=== PATIENT | male | born 1965 | race Caucasian/White ===

== ENCOUNTER 2023-12-12 09:38 | Emergency (ER) | payer MEDICARE, OTHER, SELFPAY ==
[2023-12-12 09:42] VITALS: BP 122/71
--- NOTE | 2023-12-12 11:22 | ED.GENMED ---
History of Present Illness
<Myrna Landa PA-C - Last Filed: 12/12/23 16:50>
General
Chief Complaint: Change in Mental Status
Source: patient
Exam Limitations: none
Time Seen by Provider: 12/12/23 10:53
Nursing documentation reviewed up to this point in time: agreed with
Travel History
Have you had any contact with someone who has COVID-19?: No
Do you have any symptoms of coronavirus? Fever > 100 degrees, chills, cough, shortness of breath, sore throat, loss of taste or smell, muscle aches, or headache?: No
History of Present Illness
History of Present Illness:
Patient is a 57 year old male with history dementia and downs syndrome presenting to the emergency department for evaluation of worsening confusion and visual hallucinations. Patient lives with his brother and sister who are his caregivers. They
have noticed that patient has become progressively more confused and agitated over the past 1.5 weeks. Yesterday evening he was having visual hallucinations of bugs crawling on his skin. In addition�he has not been sleeping in the past 2 days. No
fever, chills, recent viral illness, or known bug bites. No recent rashes. Patient denies any headache, neck pain. No weakness or numbness in lower extremities, although his caregivers have noticed that he seems a little more unsteady on his feet
recently.
Patient was seen by neurology and primary care who are planning to have him follow-up with the dementia specialist and switch his sertraline to Lexapro as they are worried that symptoms may be related to his medications.
Review of Systems
<Myrna Landa PA-C - Last Filed: 12/12/23 16:50>
Review of Systems
Allergies reviewed?: Yes
All Other Systems: ROS reviewed and negative except as documented in HPI and ROS
Phy Exam
<Myrna Landa PA-C - Last Filed: 12/12/23 16:50>
Physical Exam
Physical Exam:
Vitals: Patient's vital signs are stable. Afebrile
General: Patient is well appearing, no acute distress. Nontoxic-appearing
Skin: Warm and dry, no rashes or lesions
Head: Normocephalic, atraumatic
Eyes: Sclera nonicteric. EOMs intact. No nystagmus.
Throat: Protecting airway
Neck: Normal ROM, no cervical spine tenderness, no meningismus
Cardiac: Regular rate and rhythm, no murmurs.
Pulm: Normal respiratory effort, no wheezes, rales, rhonchi heard on exam.
Abdomen: Abdomen soft. No abdominal tenderness.
Extremities: No evidence of cyanosis or edema. Good distal pulses.
Neuro: AAOx3. CN II-XII intact. No focal neurologic deficits. Normal finger-nose.
Psychiatric: Normal affect. Cooperative with exam.
Course
<Myrna Landa PA-C - Last Filed: 12/12/23 16:50>
Orders/Labs/Results
Orders:
Orders
12/12/23 11:19
CT Head W/o Iv Contrast Urgent
Comment:
Reason For Exam: confusion
12/12/23 11:25
Complete Blood Count/With Diff Urgent
Comprehensive Metabolic Panel Urgent
Depakane Urgent
Urinalysis Reflex To Culture Urgent
Date Specimen was Collected: 12/12/23
Time Specimen was Collected: 11:24
Abnormal Lab Results
12/12/23
11:25
RBC 4.41 L 10^6/uL
(4.70-6.10)
MCV 95.5 H fL
(80.0-94.0)
MCH 31.7 H pg
(27.0-31.0)
RDW 15.0 H %
(11.5-14.5)
Absolute Monos (auto) 0.7 H 10^3/uL
(0.1-0.6)
Lymphocytes % 19.9 L %
(20.5-51.1)
Monocytes % 10.7 H %
(1.7-9.3)
Carbon Dioxide 31 H mmol/L
(22-30)
Valproic Acid 45.2 L ug/ml
(50.0-120.0)
12/12/23 11:25
12/12/23 11:25
Vital Signs
Initial and Last Documented VS:
Initial Vital Signs
Temp Pulse Resp BP Pulse Ox
98.6 F 60 17 122/71 98
12/12/23 09:42 12/12/23 09:42 12/12/23 09:42 12/12/23 09:42 12/12/23 09:42
Last Documented Vital Signs
Temp Pulse Resp BP Pulse Ox
98.6 F 60 17 122/71 98
12/12/23 09:42 12/12/23 09:42 12/12/23 09:42 12/12/23 09:42 12/12/23 09:42
<Lars Shane, DO - Last Filed: 12/12/23 13:25>
Orders/Labs/Results
Orders:
Orders
12/12/23 11:19
CT Head W/o Iv Contrast Urgent
Comment:
Reason For Exam: confusion
12/12/23 11:25
Complete Blood Count/With Diff Urgent
Comprehensive Metabolic Panel Urgent
Depakane Urgent
Urinalysis Reflex To Culture Urgent
Date Specimen was Collected: 12/12/23
Time Specimen was Collected: :24
Abnormal Lab Results
12/12/23
11:25
RBC 4.41 L 10^6/uL
(4.70-6.10)
MCV 95.5 H fL
(80.0-94.0)
MCH 31.7 H pg
(27.0-31.0)
RDW 15.0 H %
(11.5-14.5)
Absolute Monos (auto) 0.7 H 10^3/uL
(0.1-0.6)
Lymphocytes % 19.9 L %
(20.5-51.1)
Monocytes % 10.7 H %
(1.7-9.3)
Carbon Dioxide 31 H mmol/L
(22-30)
Valproic Acid 45.2 L ug/ml
(50.0-120.0)
12/12/23 11:25
12/12/23 11:25
Vital Signs
Initial and Last Documented VS:
Initial Vital Signs
Temp Pulse Resp BP Pulse Ox
98.6 F 60 17 122/71 98
12/12/23 09:42 12/12/23 09:42 12/12/23 09:42 12/12/23 09:42 12/12/23 09:42
Last Documented Vital Signs
Temp Pulse Resp BP Pulse Ox
98.6 F 60 17 122/71 98
12/12/23 09:42 12/12/23 09:42 12/12/23 09:42 12/12/23 09:42 12/12/23 09:42
<Myrna Landa PA-C - Last Filed: 12/12/23 16:50>
MDM/Problems Addressed
Differential Diagnosis Includes:
Not limited to: Medication side effect, UTI, electrolyte abnormality, dementia, doubt malignancy or CVA
MDM/Problems Addressed:
57-year-old male with history dementia, Down syndrome presenting for progressive changes in mental status and increased agitation over the past 1 to 2 weeks. Also not sleeping well over the past week no recent viruses or signs of infection.
Patient without any recent changes in his medications. Current medications are managed with neurology and primary care. Neurology did recently state that patient may begin to decline quickly at some point. No recent fall or trauma. Vital signs
are stable. Exam as above. He has no focal neurologic findings. Patient himself has no complaints at the moment. Will check basic labs, urinalysis. Will check level of Depakote. Given acute change in mental status will check head CT.
Labs noted. No acute abnormalities. No evidence of electrolyte derangements. Urine shows absolutely no signs of infection. Depakote level is slightly subtherapeutic which apparently has been noted previously. Patient has no known true epilepsy
disorder but a questionable seizure in the past. Will not make any medication adjustments at this time. Head CT shows no acute abnormalities.
Patient remains comfortable appearing, in no apparent distress in room. Work appears been negative. I suspect symptoms are likely related to either polypharmacy or progression in dementia. Given concern for polypharmacy�do not recommend adding
medication for sleep. Recommended OTC melatonin, if needed. Patient will follow-up with primary care for further evaluation/management and medications. They are seeing a dementia specialist within a month or so. Patient and patient's family
comfortable with plan
Chronic conditions affecting care:
Dementia
Acute Exacerbation and/or Progression of Chronic Illness:
N/A
<Myrna Landa PA-C - Last Filed: 12/12/23 16:50>
*Radiology
Radiology exam reviewed: preliminary read by ED provider and radiology read reviewed
*Pulse Oximetry
Patient hypoxic: no
*EKG
Interpreted by ED Provider?: NA
*Piano Machine Operator Interpretation
Rate: Piano Machine Operator- N/A
*Critical Care Note
Total Time (30-74mins, 75-104mins- exclusive of procedures): Not Applicable
Data Reviewed
Source: family
ED Attending Note
<Myrna Landa PA-C - Last Filed: 12/12/23 16:50>
-
Portions of this chart may have been created with voice recognition software.� Occasional wrong word or��sound alike� substitutions may have occurred due to the inherent limitations of voice recognition software.
<Lars Shane DO - Last Filed: 12/12/23 13:25>
ED Attending Note
Patient seen and examined by attending physician: Yes
I performed the substantive portion of visit, reviewed & personally made and approve the management plan that is documented in note by myself or GRDAY.: Yes
ED Attending Note:
57yo male with hx of down syndrome. presents with family who is concerned he has been a bit more irritable and not sleeping well. has been on depakote after an event a few months ago. no changes to any other meds. family states that neurology did
report that he could decline. no fevers. no falls. no seizures. Exam: Awake and alert, no focal deficits, patient at baseline during exam. Assessment and plan: Labs grossly unremarkable. CT grossly unremarkable for any acute findings. Question
polypharmacy versus progression of disease. Outpatient follow-up recommended.
Discharge Plan
Departure
Patient Disposition: Home (Routine Discharge)
Date of Disposition: 12/12/23
Time of Disposition: 13:26
Patient with high blood pressure during this ER visit?: No
Condition: Good
Covid-19: Not Applicable
Discharge Problem:
Agitation, Altered mental status
Instructions: Altered Mental Status (DC), Dementia (DC)
Referrals:
Amber Lovett CRNP [Family Provider] - Next open appointment
Activity Restrictions/Additional Instructions:
RETURN TO THE EMERGENCY DEPARTMENT WITH ANY HIGH FEVERS, SEVERE HEADACHE OR NECK PAIN, INTRACTABLE NAUSEA/VOMITING, ACUTE CHANGE IN MENTAL STATUS, WORSENING IN CURRENT SYMPTOMS, OR ANY OTHER CONCERNS
-As discussed�if sleeping difficulties persist you can try melatonin prior to bed. Stay well hydrated. Continue to take medications as prescribed. I recommend he follow-up with your primary care provider/neurologist for further discussion
regarding current medications.
Interventions
Interventions:
*Risk Screen - Suicide Last Done: 12/12/23 11:57
*General Assessment Last Done: 12/12/23 11:57
*Neglect/Abuse Screening Last Done: 12/12/23 11:57
ED- Fall Risk Assessment Last Done: 12/12/23 13:47
*ED COVID-19 Vaccine History Last Done: 12/12/23 09:44
*Nursing Disposition Last Done: 12/12/23 13:47
ED- Neurological Assessment Last Done: 12/12/23 11:57
ED Swallowing Screen Last Done: 12/12/23 11:58
Discharge Date and Time
Discharge Date/Time: 12/12/23 13:47
Print Language: NIGERIEN
[2023-12-12 11:43] LABS: % Basophils 0.9 % (0-2); % Eosinophils 0.5 % (0-6); % Immature Granulocytes 0.3 % (0-0.5); % Lymphocytes 19.9 % (20.5-51.1); % Monocytes 10.7 % (1.7-9.3); % Neutrophils 67.7 % (42.2-75.2); Absolute Basophils 0.1 10^3/uL (0-0.2); Absolute Lymphocytes 1.3 10^3/uL (1.2-3.4); Absolute Monocytes 0.7 10^3/uL (0.1-0.6); Absolute Neutrophils 4.4 10^3/uL (1.4-6.5); Hematocrit 42.1 % (39.0-52.0); Mean Corp Hgb Conc. 33.3 g/dL (33.0-37.0); Mean Corpuscular Hgb 31.7 pg (27.0-31.0); Mean Corpuscular Volume 95.5 fL (80.0-94.0); Mean Platelet Volume 9.4 fL (7.4-10.4); Nucleated Red Blood Cells % 0 % (-); Platelet Count 196 10^3/uL (130-400); Red Blood Cell Count 4.41 10^6/uL (4.70-6.10); White Blood Cell Count 6.5 10^3/uL (4.8-10.8)
[2023-12-12 11:47] LABS: Urine Albumin Negative (Neg - Trace); Urine Bilirubin Negative (Negative); Urine Character Clear (Clear); Urine Color Yellow; Urine Glucose Negative (Negative); Urine Ketone Negative (Negative); Urine Leukocyte Negative (Negative); Urine Nitrite Negative (Negative); Urine Occult Blood Negative (Negative); Urine Specific Gravity 1.015 (<1.030); Urine Urobilinogen Negative (Neg - 1+)
[2023-12-12 11:56] VITALS: BMI 25.1
[2023-12-12 12:00] LABS: ALT (SGPT) 18 U/L (0-50); AST (SGOT) 32 U/L (17-59); Albumin 3.9 g/dl (3.5-5.0); Alkaline Phosphatase 78 U/L (38-126); Blood Urea Nitrogen 19 mg/dl (9-20); Calcium 8.9 mg/dl (8.4-10.2); Carbon Dioxide 31 mmol/L (22-30); Chloride 101 mmol/L (98-107); Estimated Creatinine Clearance 84 ml/min; Glucose 73 mg/dl (70-99); Potassium 4.1 mmol/L (3.5-5.1); Sodium 139 mmol/L (135-145); Total Bilirubin 0.6 mg/dl (0.2-1.3); Total Protein 7.3 g/dl (6.3-8.2); eGFR > 60.00
[2023-12-12 12:03] LABS: Depakane 45.2 ug/ml (50.0-120.0)
== END 2023-12-12 13:47 | disposition home or self-care (01) ==
LOC: EMR 09:38
PROVIDERS: Physician Assistant; EMERGENCY PHYSICIAN Emergency Medicine; FAMILY PHYSICIAN Nurse Practitioner
DX: R41.82 Altered mental status, unspecified (principal); R45.1 Restlessness and agitation; R44.1 Visual hallucinations; Q90.9 Down syndrome, unspecified; G30.9 Alzheimer's disease, unspecified; F02.80 Dementia in other diseases classified elsewhere, unspecified severity, without behavioral disturbance, psychotic disturbance, mood disturbance, and anxiety; Z86.718 Personal history of other venous thrombosis and embolism; Z79.899 Other long term (current) drug therapy
CPT/HCPCS: 99284; 70450; 80053; 80164; 81003; 85025

== ENCOUNTER 2024-02-09 12:42 | Emergency (ER) | payer MEDICARE, OTHER, SELFPAY ==
[2024-02-09 12:45] VITALS: BP 103/50
--- NOTE | 2024-02-09 13:13 | ED.MUSCINJ ---
HPI-Injury
General
Chief Complaint: Musculo-Skeletal Complaint
Source: patient and family (Sister who is his guardian is at bedside)
Exam Limitations: none
Time Seen by Provider: 02/09/24 13:02
Nursing documentation reviewed up to this point in time: agreed with except (PMHx in triage states DVT right thigh, sister says his DVT is in his left lower extremity only)
History of Present Illness-Injury
Initial Injury comments:
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 Initially there was no indication of injury other than a few
scrapes on his right forearm and a mild scrape on his right knee. Past 2 days however the knee has appeared swollen and has had trouble walking. Due to his mental incapacity, she states he never complains of pain even with painful
situations/procedures.
Past History
Past History
ED Past Medical History: Other (Down syndrome, Alzheimer's, chronic DVT left lower extremity on Eliquis)
ED Past Surgical History: Orthopedic (Bilateral hip replacements)
Social History
Tobacco: Non-smoker
Alcohol: None
Personal: Single
Living: with family
Phy Exam
Physical Exam
Physical Exam:
GENERAL: No acute distress. A&Ox3.
CONSTITUTIONAL: Afebrile.
RESPIRATORY: Regular respirations, nonlabored, lungs clear.
CARDIOVASCULAR: Regular rate and rhythm, no murmurs, no rubs.
MUSCULOSKELETAL: Right knee is swollen, distal neurovascular intact.
SKIN: Warm, dry, pink
PSYCH: Normal mood and affect. Well kept, interactive and appropriate
NEUROLOGIC: Awake, alert and oriented. No focal neurological deficits
Injury Course
Orders/Labs/Results
Orders:
Orders
02/09/24 12:49
CR Knee- Right 4 Or More View* Urgent
Comment:
Reason For Exam: fall, swelling
02/09/24 13:57
Erick Wrap Right-Treatment ONCE
Knee Immobilizer Right-Treatme ONCE
02/09/24 14:10
Body Fluid Cell Count Urgent
What is the Body Fluid: joint
Date Specimen was Collected: 02/09/24
Time Specimen was Collected: 14:02
Comment: with DIFF
Body Fluid Crystals Urgent
What is the Body Fluid: joint
Date Specimen was Collected: 02/09/24
Time Specimen was Collected: 14:02
Body Fluid Glucose Urgent
Fluid Source: Other
Other Source: Right knee
Date Specimen was Collected: 02/09/24
Time Specimen was Collected: 14:02
02/09/24 14:11
Fluid Culture with Gram Stain Urgent
ALIZA Source: Joint Fluid
Specimen Description:
Date Specimen was Collected: 02/09/24
Time Specimen was Collected: 14:02
Procedures
Incision/Drainage/Joint Aspiration
Right Lateral Knee:
Anethesia: 1% Lidocaine with Epi
Preparation: cleaned with alcohol wipe
Type of procedure: aspiration
Nature of site: other (suprapatellar right knee effusion)
How much fluid was obtained?: number in mls (75)
Fluid description: straw colored
Treatment: bandaid applied
MDM/Problems Addressed
Differential Diagnosis Includes:
Hemarthrosis, fracture
MDM/Problems Addressed:
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 Initially there was no indication of injury other than a few
scrapes on his right forearm and a mild scrape on his right knee. Past 2 days however the knee has appeared swollen and has had trouble walking. Due to his mental incapacity, she states he never complains of pain even with painful
situations/procedures.
Xray right knee: Initially read by this examiner: Moderate suprapatellar effusion.
Knee fluid results: Consistent with inflammation not infection. Calcium pyrophosphate crystals seen. Mom states he's had 'gout' results in previous joint fluid opposite knee.
Message left on sister's service w knee fluid results and to be sure his orthopedic doctor knows that the results of the fluid. Left my call back number if she has any questions
Chronic conditions affecting care: Neurological disorder (Altzheimer's, Down's Syndrome)
*Critical Care Note
Total Time (30-74mins, 75-104mins- exclusive of procedures): Not Applicable
ED Attending Note
-
Portions of this chart may have been created with voice recognition software.� Occasional wrong word or��sound alike� substitutions may have occurred due to the inherent limitations of voice recognition software.
Discharge Plan
Departure
Patient Disposition: Home (Routine Discharge)
Date of Disposition: 02/09/24
Time of Disposition: 13:58
Patient with high blood pressure during this ER visit?: No
Condition: Good
Discharge Problem:
Injury of right knee, Effusion of knee joint right
Instructions: Knee Immobilizer (DC), Meniscal Tear (DC), Using Cold for Pain
Referrals:
Your, [facility] [Other] - Call in 1-3 days for appt
Amber Lovett CRNP [Family Provider] -
Activity Restrictions/Additional Instructions:
As we discussed, wear the knee immobilizer when up and around until further instructed by your orthopedic doctor at [facility]. Call tomorrow to make next available appointment.
I cannot rule in or out a torn meniscus so it is important that you follow-up with orthopedics.
You may remove the erick wrap in 2 days and use again if needed for swelling.
Tylenol or Ibuprofen as needed for pain
Interventions
Interventions:
*General Assessment Last Done: 02/09/24 12:45
*ED COVID-19 Vaccine History Last Done: 02/09/24 12:45
*Nursing Disposition Last Done: 02/09/24 14:26
ED-Musculoskeletal Assessment Last Done: 02/09/24 13:51
Discharge Date and Time
Discharge Date/Time: 02/09/24 14:26
Print Language: NAMIBIAN
[2024-02-09 14:54] LABS: Body Fluid Mononuclear 11.3 %; Body Fluid Polymorphonuclear 88.7 %; Body Fluid WBC 62360 /CUMM
[2024-02-09 14:58] LABS: Body Fluid Second Tech CS
[2024-02-09 15:30] LABS: Body Fluid Glucose 96 mg/dl
== END 2024-02-09 14:26 | disposition home or self-care (01) ==
LOC: EMR 12:42
PROVIDERS: Registered Nurse; EMERGENCY PHYSICIAN Emergency Medicine; FAMILY PHYSICIAN Nurse Practitioner
DX: S89.91XA Unspecified injury of right lower leg, initial encounter (principal); M25.461 Effusion, right knee; W19.XXXA Unspecified fall, initial encounter; G30.9 Alzheimer's disease, unspecified; F02.80 Dementia in other diseases classified elsewhere, unspecified severity, without behavioral disturbance, psychotic disturbance, mood disturbance, and anxiety; Q90.9 Down syndrome, unspecified
CPT/HCPCS: 99284; 20610; 73564; 82945; 87015; 87070; 87205; 89051; 89060